=== PATIENT | male | born 1995 | race African-American/Black ===

== ENCOUNTER 2017-05-01 02:22 | Emergency (ER) | payer BC ==
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
[2017-05-01 03:24] VITALS: BP 126/60; PULSE 59; RESP 16; TEMP 97.7
== END 2017-05-01 03:56 | disposition home or self-care (01) ==
LOC: EC 02:22
DX: R06.02 Shortness of breath (principal); R10.13 Epigastric pain; M62.830 Muscle spasm of back; T50.905A Adverse effect of unspecified drugs, medicaments and biological substances, initial encounter
CPT/HCPCS: 99284

== ENCOUNTER → 2021-02-03 | Outpatient (CLI) | payer BC | END | disposition home or self-care (01) | DX: R05 Cough (principal) ==